=== PATIENT | male | born 1955 | race Caucasian/White ===

== ENCOUNTER 2018-11-07 11:53 | Day surgery (SDC) | payer BC ==
[2018-11-07] MEDS ORDERED: PROPOFOL 20 ML (15:22)
== END 2018-11-07 16:08 | disposition home or self-care (01) ==
LOC: GIL 11:53
DX: K31.9 Disease of stomach and duodenum, unspecified (principal); K25.3 Acute gastric ulcer without hemorrhage or perforation; I11.0 Hypertensive heart disease with heart failure; I50.9 Heart failure, unspecified; I25.10 Atherosclerotic heart disease of native coronary artery without angina pectoris; Z95.0 Presence of cardiac pacemaker
CPT/HCPCS: 43239; 88305; 88312